=== PATIENT | male | born 1980 | race Caucasian/White ===

== ENCOUNTER 2019-03-11 12:51 | Emergency (ER) | payer BC, SELFPAY ==
[2019-03-11 12:54] VITALS: BP 158/93; PULSE 117; RESP 13; TEMP 36.4; O2SAT 95; BMI 36.6
--- NOTE | 2019-03-11 13:34 | RAD_ITS ---
STUDY: X-RAY CHEST REASON FOR EXAM: Male, 39 years old. RAPID HEART RATE/SOB TECHNIQUE: Single AP portable view of the chest. COMPARISON: 03/01/2015. FINDINGS: The lungs are clear and expanded. There is no demonstrated pleural abnormality. Normal size heart. Normal mediastinum and stephanie. Normal visualized pulmonary arteries. Normal visualized aortic arch and descending thoracic aorta. Normal visualized thoracic spine. Normal visualized ribs, clavicles, and shoulders. There is no demonstrated abnormality of the visualized soft tissue structures of the upper abdomen. RAD/Chest 1 View (Portable) IMPRESSION: Normal x-ray examination of the chest. Electronically Signed: Preston Tenorio MD at 13:57 EDT , Service support ,
--- NOTE | 2019-03-11 13:34 | EKG12_ITS ---
Test Reason : PALPITATIONS Blood Pressure : / mmHG Vent. Rate : 120 BPM Atrial Rate : 120 BPM P-R Int : 156 ms QRS Dur : 088 ms QT Int : 312 ms P-R-T Axes : 042 129 018 degrees QTc Int : 440 ms Sinus tachycardia Left posterior fascicular block Possible Inferior infarct (cited on or before 01-MAR-2015), age undetermined Poor R-Wave Progression Abnormal ECG Confirmed by ADALGISA CARDENAS, MONCHO ([id number]), editor continuity and script KRISTAL SNIDER ([id number]) on 03/13/2019 11:57:17 AM Referred By: MEHNAZ Confirmed By:MONCHO DIANA MD
[2019-03-11] MEDS: 0.9% Normal Saline 1,000 ML 999 ML IV (13:45)
--- NOTE | 2019-03-11 13:56 | ED.DCSUM_ITS ---
- ER Visit Summary Date of Service: 03/11/19 Chief Complaint: Fast heart rate History of Present Illness: The patient is a 39 M who presents the emergency department with palpitations. Patient states that he was up all night packing boxes for move. He drank slightly less than the fifth of vodka and orange juice. He went to bed around 0700 hours. He does not normally stay up all night. He slept until approximately 1230 hrs. when he woke to urinate. He has had a sudden onset of fast heart rate. He states his heart was beating too fast to count and felt like his go to come out of his chest. He had to sit down in the bathroom. EMS was called and he tells me that as they walked into the house his symptoms suddenly resolved. He has had intermittent episodes like this in the past lasting only a few seconds. Physical Examination: Afebrile vital signs are stable noted heart rate of 117 Gen: Well-nourished well-developed Head: Normocephalic atraumatic Eyes: Perrl EOMI ENT: TMs clear no rhinorrhea moist mucous membranes Neck: Supple no lymphadenopathy no JVD nontender CVS: Regular rate tachycardic rhythm no murmurs normal S1-S2 Respiratory: No distress clear to auscultation bilaterally chest nontender Abdomen: Soft nontender nondistended normal bowel sounds no masses Back: Nontender Extremity: Nontender no edema Skin: Normal color no rash Neuro: alert orientated ?3 CN II-XII intact normal strength sensation reflexes gait cerebellar Psych: Normal affect normal mood Test Results: EKG demonstrates a sinus tachycardia rate of 120. There is no ectopy. Noted left posterior fascicular block. CBC and electrolytes are normal Emergency Department Course and Treatment: Patient was observed on the monitor. Patient sinus tachycardia. He states that he feels very anxious. At this point I have have not seen any pathologic rhythms. Patient to follow-up with primary care. He should avoid alcohol and try to quit smoking. Avoid caffeine. Impression: 1. Palpitations This note was generated with [employer] dictation software. It may contain incorrect words, spelling, and punctuation that were not noted in review of the chart prior to signing ED Disposition - Plan for ED Patient: Disposition: Home or Assisted Living Instructions: ED Palpitations, ED Tachycardia Pat PSVT Referrals: Herbie Hook DO [Primary Care Provider] - (call to arrange follow up)
[2019-03-11 14:05] LABS: Absolute Lymphocyte Count 1.73 X10^3/ul (0.83-4.51); Absolute Neutrophil Count 5.3 X10^3/uL (2.0-7.7); Basophil# 0.02 X10^3/uL; Basophil% 0.3 % (0-1); Eosinophil# 0.06 X10^3/uL; Eosinophils% 0.8 % (0-5); Hematocrit 46.7 % (40-54); Hemoglobin 15.8 g/dl (13.0-16.5); Lymphocyte # 1.73 X10^3/ul (4.0); Lymphocyte % 22.7 % (19-41); Mean Corp Hgb Conc 33.8 g/gl (32-36); Mean Corpuscular Volume 88.8 fL (80-94); Mean Platelet Vol. 10.1 fl (6.2-12.0); Monocyte# 0.47 X10^3/uL; Monocyte% 6.2 % (0-10); Neutrophil # 5.31 X10^3/uL (2.7-7.7); Neutrophil % 69.6 % (47-70); Platelet Count 299 K/mm3 (150-450); RBC Distribution Width CV 13.8 % (11.6-14.6); RBC Distribution Width SD 44.9 fl (35.1-43.9); Red Blood Count 5.26 M/mm3 (4.6-6.2); White Blood Count 7.6 K/mm3 (4.4-11.0)
[2019-03-11 14:08] LABS: POSITIVE COUNT NO; POSITIVE DIFFERENTIAL NO; POSITIVE MORPHOLOGY NO
[2019-03-11 14:17] LABS: Anion Gap 3 (5-15); BUN 11 mg/dL (7-18); BUN/Creat Ratio 12.2 RATIO (10-20); Calcium,Total 8.1 mg/dL (8.5-10.1); Chloride 111 mmol/L (98-107); EST Glomerular Filtration Rate 100 mL/min (>60); Est Glom Filt Rate - Afr Amer 121 mL/min (>60); Estimated Creatinine Clearance 133.01 ml/min; Glucose 104 mg/dL (74-106); Magnesium 1.9 mg/dL (1.6-2.6); Potassium 3.9 mmol/L (3.5-5.1); Sodium Level 141 mmol/L (136-145)
[2019-03-11 14:23] LABS: Hemoglobin A1c 5.5 % (4.2-6.3)
[2019-03-11 15:09] VITALS: BP 133/85; PULSE 108; RESP 16; O2SAT 96
== END 2019-03-11 15:11 | disposition home or self-care (01) ==
PROVIDERS: Emergency Provider Emergency Medicine; Family Provider Preventive Medicine Occupational Medicine; PCP Preventive Medicine Occupational Medicine
DX: R00.2 Palpitations (principal); F17.200 Nicotine dependence, unspecified, uncomplicated; Z72.89 Other problems related to lifestyle
CPT/HCPCS: 71045; 80048; 83036; 83735; 85025; 93005; 96360; 99285; J7030; A4216

== ENCOUNTER → 2023-02-10 | Outpatient (CLI) | payer OTHER, SELFPAY ==
[2023-02-10 12:35] LABS: Absolute Lymphocyte Count 1.52 X10^3/uL (0.83-4.51); Absolute Neutrophil Count 4.1 X10^3/uL (2.0-7.7); Basophil# 0.04 X10^3/uL; Basophil% 0.7 % (0-1); Eosinophil# 0.11 X10^3/uL; Eosinophils% 1.8 % (0-5); Hematocrit 49.6 % (40-54); Hemoglobin 16.2 g/dL (13.0-16.5); Lymphocyte # 1.52 X10^3/ul (0.83-4.51); Lymphocyte % 24.9 % (19-41); Mean Corp Hgb Conc 32.7 g/dL (32-36); Mean Corpuscular Hgb 29.3 pg (27.0-32.0); Mean Corpuscular Volume 89.7 fL (80-94); Mean Platelet Vol. 10.7 fl (6.2-12.0); Monocyte# 0.36 X10^3/uL; Monocyte% 5.9 % (0-10); NRBC Flagged by Analyzer 0 % (0-5); Neutrophil # 4.05 X10^3/uL (2.7-7.7); Neutrophil % 66.4 % (47-70); Platelet Count 313 K/mm3 (150-450); RBC Distribution Width CV 13.1 % (11.6-14.6); RBC Distribution Width SD 43.3 fl (35.1-43.9); Red Blood Count 5.53 M/mm3 (4.6-6.2); White Blood Count 6.1 K/mm3 (4.4-11.0)
[2023-02-10 13:24] LABS: Hemoglobin A1c 5.3 % (3.8-5.6)
[2023-02-10 13:33] LABS: AST(SGOT) 19 U/L (15-37); Alanine Aminotransfer ALT/SGPT 28 U/L (16-61); Albumin, Serum 3.8 g/dL (3.2-5.0); Alkaline Phosphatase 88 U/L (45-117); Anion Gap 6 (5-15); BUN 15 mg/dL (7-18); BUN/Creat Ratio 18.1 RATIO (10-20); Calcium,Total 9.2 mg/dL (8.5-10.1); Chloride 108 mmol/L (98-107); Cholesterol 229 mg/dL (200); Creatinine, Serum 0.83 mg/dL (0.70-1.30); EST Glomerular Filtration Rate 108 mL/min (>60); Est Glom Filt Rate - Afr Amer 131 mL/min (>60); Globulin 3.8 g/dL (2.2-4.2); Glucose 100 mg/dL (74-106); High Density Lipoprotein 38 mg/dL; Potassium 3.9 mmol/L (3.5-5.1); Protein, Total 7.6 g/dL (6.4-8.2); Sodium Level 139 mmol/L (136-145); Thyroid Stim Hormone (TSH) 1.09 uIU/mL (0.358-3.74); Triglycerides 223 mg/dL; Very Low Density Lipoprotein 45 mg/dL (5-40)
== END | disposition home or self-care (01) ==
LOC: MFPLAB 11:11
PROVIDERS: PCP Family Medicine; Referring Provider Family Medicine; Visit Provider Family Medicine
DX: R00.2 Palpitations (principal)
CPT/HCPCS: 36415; 80053; 80061; 83036; 84443; 85025

== ENCOUNTER 2023-02-25 19:37 | Emergency (ER) | payer OTHER, SELFPAY ==
[2023-02-25 19:38] VITALS: BP 143/90; PULSE 91; RESP 18; TEMP 36.7; O2SAT 99; BMI 29.5
[2023-02-25 20:30] LABS: Absolute Lymphocyte Count 2.08 X10^3/uL (0.83-4.51); Absolute Neutrophil Count 5.2 X10^3/uL (2.0-7.7); Basophil# 0.04 X10^3/uL; Basophil% 0.5 % (0-1); Eosinophil# 0.11 X10^3/uL; Eosinophils% 1.4 % (0-5); Hematocrit 45.6 % (40-54); Hemoglobin 15.1 g/dL (13.0-16.5); Lymphocyte # 2.08 X10^3/ul (0.83-4.51); Lymphocyte % 25.9 % (19-41); Mean Corp Hgb Conc 33.1 g/dL (32-36); Mean Corpuscular Hgb 29.3 pg (27.0-32.0); Mean Corpuscular Volume 88.4 fL (80-94); Mean Platelet Vol. 10.1 fl (6.2-12.0); Monocyte# 0.56 X10^3/uL; NRBC Flagged by Analyzer 0 % (0-5); Neutrophil # 5.23 X10^3/uL (2.7-7.7); Neutrophil % 65.1 % (47-70); Platelet Count 313 K/mm3 (150-450); RBC Distribution Width CV 13.1 % (11.6-14.6); RBC Distribution Width SD 42.9 fl (35.1-43.9); Red Blood Count 5.16 M/mm3 (4.6-6.2)
[2023-02-25 21:03] LABS: ALB/GLOB Ratio 1.1 RATIO (0.9-2.4); AST(SGOT) 18 U/L (15-37); Alanine Aminotransfer ALT/SGPT 26 U/L (16-61); Albumin, Serum 3.7 g/dL (3.2-5.0); Alkaline Phosphatase 79 U/L (45-117); Anion Gap 4 (5-15); BUN 18 mg/dL (7-18); BUN/Creat Ratio 17.3 RATIO (10-20); Calcium,Total 8.9 mg/dL (8.5-10.1); Chloride 111 mmol/L (98-107); Creatinine, Serum 1.04 mg/dL (0.70-1.30); EST Glomerular Filtration Rate 83 mL/min (>60); Est Glom Filt Rate - Afr Amer 101 mL/min (>60); Estimated Creatinine Clearance 107.58 ml/min; Globulin 3.4 g/dL (2.2-4.2); Glucose 116 mg/dL (74-106); Potassium 3.6 mmol/L (3.5-5.1); Protein, Total 7.1 g/dL (6.4-8.2); Sodium Level 142 mmol/L (136-145); Thyroid Stim Hormone (TSH) 1.43 uIU/mL (0.358-3.74)
--- NOTE | 2023-02-25 22:05 | EDS_ITS ---
HPI History of Present Illness Chief Complaint: General Illness [facility] Medical History (Updated 02/25/23 @ 22:[address] Alexsander Milton MD) Alcohol abuse Cataracts, both eyes Home Medications buspirone 5 mg tablet 5 mg PO DAILY 10/03/19 [History Last Taken Unknown] Allergy/AdvReac Type Severity Reaction Status Date / Time No Known Allergies Allergy Verified 02/25/23 19:40 Social History (Updated 10/03/19 @ 11:[address] Mane Canseco MD) Smoking Status: Former smoker alcohol intake: former details: liquor excessive every other day substance use type: does not use what type of physical activity do you participate in: walking frequency: daily EXAM Physical Exam Const Vital Signs: 02/25/23 19:38 02/25/23 19:53 Temperature 98.0 F Temperature Source Temporal Pulse Rate 91 Respiratory Rate 18 Respiratory Effort Normal Non-Labored Respiratory Pattern Normal Blood Pressure 143/90 H Blood Pressure Mean 107 Pulse Ox 99 Oxygen Delivery Method Room Air MDM MDM MDM Narrative Medical decision making narrative: Patient CBC shows no acute abnormalities. Electrolytes are overall good. Minimal elevation of chloride which is nonspecific. Glucose is mildly elevated at 116. BUN/creatinine calcium are normal. Liver function test are normal. TS H is normal. Patient has lots of symptoms. He evidently has been dealing with these for a while although they have worsened. He has never been able to get the results to explain his symptoms at his family doctor. They have done work-up and have not found causes. I think some of his symptoms may be from GERD because he does get a lot of GI upset nausea after eating. But he is not getting real pain. No biliary area tenderness. I recommend he try taking Prilosec or Nexium for couple weeks to see if his symptoms get better. This may not help him but it may give some benefit. He will follow-up with his primary physician. I explained that there is quite a bit of other testing that can be done that is not available in the emergency department. Lab Data Attestation: I reviewed the patient's lab results. Labs: Laboratory Results - last 24 hr 02/25/23 02/25/23 20:20 20:20 WBC 8.0 RBC 5.16 Hgb 15.1 Hct 45.6 MCV 88.4 MCH 29.3 MCHC 33.1 RDW Std Deviation 42.9 RDW Coeff of Daylin 13.1 Plt Count 313 MPV 10.1 Immature Gran % (Auto) 0.100 Neut % (Auto) 65.1 Lymph % (Auto) 25.9 Lewis % (Auto) 7.0 Eos % (Auto) 1.4 Baso % (Auto) 0.5 Absolute Neuts (auto) 5.2 Absolute Lymphs (auto) 2.08 Nucleated RBC % 0 Sodium 142 Potassium 3.6 Chloride 111 H Carbon Dioxide 27.0 Anion Gap 4 L BUN 18 Creatinine 1.04 Estim Creat Clear Calc 107.58 Est GFR (MDRD) Af Amer 101 Est GFR (MDRD) Non-Af 83 BUN/Creatinine Ratio 17.3 Glucose 116 H Calcium 8.9 Total Bilirubin 0.30 AST 18 ALT 26 Alkaline Phosphatase 79 Total Protein 7.1 Albumin 3.7 Globulin 3.4 Albumin/Globulin Ratio 1.1 TSH 1.43 Discharge Plan Triage Chief Complaint: General Illness ED Provider: Alexsander Milton Dx/Rx/DC Orders Clinical Impression: Gastroesophageal reflux disease, Tiredness Instructions: ED GERD (Adult) Prescriptions: No Action buspirone 5 mg tablet 5 mg PO DAILY Primary Care Provider: Elise Benavides Referrals: Elise Benavides, DO [Primary Care Provider] - As soon as possible Disposition Disposition: Home, Self Care
[2023-02-25 22:18] VITALS: BP 136/91; PULSE 71; RESP 12; O2SAT 97
== END 2023-02-25 22:18 | disposition home or self-care (01) ==
PROVIDERS: Emergency Provider Emergency Medicine; PCP Family Medicine; Visit Provider Emergency Medicine
DX: K21.9 Gastro-esophageal reflux disease without esophagitis (principal); R53.83 Other fatigue; Z87.891 Personal history of nicotine dependence
CPT/HCPCS: 80053; 84443; 85025; 99283; A4216

== ENCOUNTER → 2023-03-17 | Outpatient (CLI) | payer OTHER, SELFPAY ==
--- NOTE | 2023-03-17 11:02 | ECHOD_ITS ---
Reason For Study: ABN EKG Procedure This was a 2D Doppler, Color Flow transthoracic echocardiogram. Exam performed in department. Left Ventricle Normal left ventricle. The left ventricular ejection fraction is 60 %. No evidence for diastolic dysfunction. Right Ventricle Normal right ventricle. Atria The left and right atria are normal. Mitral Valve The mitral valve is structurally normal. No prolapse or stenosis seen. Tricuspid Valve Normal tricuspid valve. Aortic Valve Normal aortic valve. Pulmonic Valve The pulmonic valve is not well visualized. Great Vessels Normal sized aortic root. Pericardium/Pleural No pericardial effusion. MMode/2D Measurements & Calculations LVIDd: 4.8 cm IVSd: 1.0 cm LAV(MOD-bp): 30.2 ml LVIDs: 3.1 cm LVPWd: 0.79 cm LAV(MOD-bp) Indexed: 13.2 ml/m2 FS: 34.9 % LAV(MOD-sp2): 30.0 ml LAV(MOD-sp4): 30.1 ml SV(MOD-sp4): 31.7 ml SV(sp4-el): 35.0 ml LVAd ap4: 25.2 cm2 LVLd ap4: 8.3 cm EDV(MOD-sp4): 60.8 ml EDV(sp4-el): 64.4 ml LVAs ap4: 15.3 cm2 LVLs ap4: 6.7 cm ESV(MOD-sp4): 29.1 ml ESV(sp4-el): 29.4 ml EF(MOD-sp4): 52.2 % EF(sp4-el): 54.4 % LA A4 area: 13.7 cm2 LA dimension(2D): 3.5 cm RA A4 area: 10.8 cm2 Time Measurements MV dec time: 0.27 sec Doppler Measurements & Calculations MV E max dany: 61.1 cm/sec Lat Peak E' Dany: 16.8 cm/sec Med Peak E' Dany: 10.5 cm/sec MV A max dany: 56.3 cm/sec E/E' lat: 3.6 E/E' med: 5.8 MV E/A: 1.1 MV V2 max: 90.2 cm/sec MV dec slope: 258.1 cm/sec2 Ao V2 max: 128.1 cm/sec MV max P.3 mmHg Ao max P.6 mmHg MV V2 mean: 60.7 cm/sec Ao V2 mean: 89.0 cm/sec MV mean P.6 mmHg Ao mean P.6 mmHg MV V2 VTI: 25.0 cm Ao V2 VTI: 23.9 cm AV (velocity ratio): 0.94 LV V1 max: 106.0 cm/sec PA V2 max: 123.7 cm/sec LV V1 max P.5 mmHg PA V2 mean: 80.9 cm/sec LV V1 mean P.5 mmHg LV V1 mean: 73.6 cm/sec LV V1 VTI: 22.4 cm ECHO/Echo Complete Interpretation Summary The left ventricular ejection fraction is 60 %. No evidence for diastolic dysfunction. Ordering Physician: Elise Benavides Referring Physician: Elise Benavides Performed By: Sravanthi Smith RCS
== END | disposition home or self-care (01) ==
LOC: CVS 11:01
PROVIDERS: PCP Family Medicine; Referring Provider Family Medicine; Visit Provider Family Medicine
DX: R94.31 Abnormal electrocardiogram [ECG] [EKG] (principal)
CPT/HCPCS: 93306

== ENCOUNTER → 2023-10-22 | Outpatient (CLI) | payer OTHER, SELFPAY ==
--- NOTE | 2023-10-22 14:15 | RAD_ITS ---
INDICATION: chronic left foot pain EXAMINATION/TECHNIQUE: X-RAY - LEFT XR Foot Min 3 Views 3 VIEWS COMPARISON: No relevant prior comparison study available FINDINGS: SOFT TISSUES: No soft tissue swelling or gas. No radiopaque foreign body. BONES/JOINTS: No acute fracture or subluxation.. Normal alignment. Preservation of the joint space.. No sclerotic or destructive changes observed. Mild hypertrophic spurring of the plantar aponeurosis and Achilles insertion to the calcaneus. RAD/Foot min 3 Views IMPRESSION: No fracture or malalignment. Small heel spurs. Electronically Signed: Bg Stockton MD at 17:36 EST ,
== END | disposition home or self-care (01) ==
LOC: MTRAD 14:16
PROVIDERS: PCP Family Medicine; Referring Provider Family Medicine; Visit Provider Family Medicine
DX: M79.672 Pain in left foot (principal); G89.29 Other chronic pain
CPT/HCPCS: 73630

== ENCOUNTER 2024-02-22 14:33 | Emergency (ER) | payer OTHER, SELFPAY ==
[2024-02-22 14:34] VITALS: BP 131/88; PULSE 90; RESP 16; TEMP 36.2; O2SAT 97; BMI 31.5
[2024-02-22 15:29] VITALS: BP 132/68; PULSE 69; RESP 16; TEMP 37.2; O2SAT 99
--- NOTE | 2024-02-22 15:29 | ED.VIS.GI ---
HPI HPI - GI History of Present Illness Chief Complaint: Lower Extremity Injury Detail of Chief Complaint: Left groin pain. Informant: patient and spouse/S.O. Abdominal Pain/Flank Pain Onset: Month(s) Context: Gradual Onset Timing: Intermittent Quality: Aching Location: - (Left groin.) Current Severity: Mild Maximum Severity: Moderate Nausea/Vomiting/Emesis GI Symptom: Negative for Nausea or Vomiting Diarrhea/Melena/Hematochezia GI Symptom: Negative for Diarrhea, Melena or Hematochezia Associated Symptoms Associated Symptoms: Negative for Dysuria, Frequency, Hematuria or Urgency Narrative Narrative: 44-year-old healthy male no prior abdominal surgery. Has had intermittent groin pain for months. Intermittently he feels a fullness in his left groin area. Denies any fall injury or trauma. No abdominal pain. No fever or chills. No nausea, vomiting or diarrhea. No dysuria. Prior similar symptoms: Yes Recent Illness/Hospitalization: No PFSH PFSH Medical History Alcohol abuse Cataracts, both eyes Hernia Home Medications buspirone 5 mg tablet 5 mg PO DAILY 10/03/19 [History Last Taken Unknown] Allergy/AdvReac Type Severity Reaction Status Date / Time No Known Allergies Allergy Verified 02/22/24 14:37 Social History Smoking Status: Former smoker alcohol intake: former details: liquor excessive every other day substance use type: does not use what type of physical activity do you participate in: walking frequency: daily ROS ROS ED ROS Narrative Left groin pain. No recent illness. Review of Systems ROS Unobtainable: Denies due to encephalopathy Constitutional Constitutional ED: Denies chills or fever(s) ENT ENT ED: Denies ear pain Cardiovascular Cardiovascular: Denies chest pain or palpitations Respiratory/Chest Respiratory/Chest: Denies cough or dyspnea Gastrointestinal Gastrointestinal: Denies abdominal pain, constipation, diarrhea, melena, nausea or vomiting Genitourinary Genitourinary ED: Denies dysuria or hematuria Musculoskeletal Musculoskeletal: Denies arthralgias or back pain Integumentary Denies abscess, Abrasions or rash Neurologic Neurologic: Denies headache(s) Psychiatric Psychiatric: Denies anxiety, depression or suicidal thoughts Endocrine Endocrinology: Denies polydipsia or polyuria Hematologic/Lymphatic Hematologic/Lymphatic: Denies easy bleeding, easy bruising or lymphadenopathy Allergic/Immunologic Allergic/Immunologic ED: Denies mouth swelling, tongue swelling or urticaria EXAM Physical Exam Narrative Exam Narrative: 44-year-old male no acute distress sitting upright in bed. Vital signs stable afebrile. HEENT exam unremarkable. Lungs clear to auscultation. Heart regular rhythm no murmur. Abdomen soft, nondistended normal bowel sounds no peritoneal signs. Left groin there is a fullness in his proximal scrotum. But there is no scrotal tenderness or pain. No redness or swelling. No testicular tenderness or swelling. His right groin is unremarkable. His left inguinal canal he can feel a fullness. Currently there is no incarcerated or strangulated hernia. But I do think this is a inguinal hernia. Moving all 4 extremities. Nontender no edema. Neurologically is awake and alert. Const Vital Signs: 02/22/24 14:34 Temperature 97.1 F L Temperature Source Temporal Pulse Rate 90 Respiratory Rate 16 Blood Pressure 131/88 H Blood Pressure Mean 102 Pulse Ox 97 Oxygen Delivery Method Room Air Positive well nourished and well developed; Negative for cachectic, contractures or unkempt General Appearance ED: well developed and NAD; Negative for unkempt, cachectic, contractures or pallor Nutritional Appearance: Negative for cachectic HEENT Reports moist mucous membranes; Denies dry mucous membranes normocephalic and atraumatic; Negative for trauma or tenderness Mouth ED: No dry mucous membranes Mouth: No dry mucous membranes Eyes PERRL and EOMs intact bilaterally General Eye ED: Negative for pale conjunctiva, scleral icterus or other Neck no lymphadenopathy, supple and no JVD General: Negative for tenderness Carotids: Negative for other Resp normal respiratory effort and clear to auscultation bilaterally Effort and Inspection: Negative for respiratory distress Auscultation: Negative for rales, rhonchi or wheezes Cardio regular rate, regular rhythm, S1 normal heart sound, S2 normal heart sound and no murmurs Rate: Negative for bradycardia or tachycardic Rhythm: Negative for abnormal rhythm GI non-tender, non-distended and no masses GI Narrative: Left inguinal hernia. No significant tenderness. Inspection: Negative for abdominal distention Auscultation: normoactive bowel sounds Palpation: soft and hernia; Negative for tender or rebound tenderness present Back/Spine no CVA tenderness General Back: Negative for CVA tenderness Cervical Spine: Negative for cervical spine tenderness Thoracic Spine / Upper Back: Negative for thoracic spinal tenderness Lumbar Spine / Lower Back: Negative for lumbar spinal tenderness Coccyx: Negative for other Neuro CN's II-XII intact bilaterally and moves all extremities Sensorium / Orientation: alert, oriented to person, oriented to place and oriented to time; Negative for orientation impaired, confused, lethargic or stuporous Motor Exam: strength 5/5 throughout Psych mental status grossly normal and thought process normal Appearance: Negative for unkempt Attitude: No agitated Mood & Affect: Negative for depressed, anxious or tearful Skin General Skin Exam: Negative for jaundice or pallor Lesions: no lesions Rashes: no rashes Trauma: Negative for abrasion Nails: Negative for discolored MDM MDM MDM Narrative Medical decision making narrative: 44-year-old male has a left inguinal hernia. Currently is not incarcerated strangulated he has no signs of abdominal pain, tenderness or obstruction. He will be referred to general surgery on-call who is Dr. David Lopez to ask for outpatient follow-up. Patient was instructed if he develops severe pain or distended abdomen with increasing abdominal pain needs to return for evaluation but at this time is no signs of any of that. History & Record Review Discussion w/independent historian: Patient and Family Discharge Plan Triage Chief Complaint: Lower Extremity Injury ED Provider: Zachary Orantes Dx/Rx/DC Orders Clinical Impression: Inguinal hernia Instructions: ED Hernia (Adult) Prescriptions: No Action buspirone 5 mg tablet 5 mg PO DAILY Primary Care Provider: Elise Benavides Referrals: David Santiago MD [Med Staff - Active Staff] - As soon as possible Elise Benavides, DO [Primary Care Provider] - Activity Restrictions/Additional Instructions: Tylenol and or Motrin for pain. You have a left groin hernia. Follow-up with general surgery at evaluated for possible hernia repair surgery. Return if you start having severe pain for a distended abdomen we could be developing a bowel obstruction. Disposition Disposition: Home, Self Care
== END 2024-02-22 15:47 | disposition home or self-care (01) ==
LOC: ED 15:43
PROVIDERS: Emergency Provider Emergency Medicine; PCP Family Medicine; Visit Provider Emergency Medicine
DX: K40.90 Unilateral inguinal hernia, without obstruction or gangrene, not specified as recurrent (principal); Z87.891 Personal history of nicotine dependence
CPT/HCPCS: 99282

== ENCOUNTER 2025-07-31 14:06 | Emergency (ER) | payer OTHER, SELFPAY ==
[2025-07-31 14:07] VITALS: BP 141/110; PULSE 88; RESP 18; TEMP 36.4; O2SAT 99; BMI 30.7
--- NOTE | 2025-07-31 14:43 | EDS_ITS ---
HPI History of Present Illness Chief Complaint: Fatigue Detail of Chief Complaint: Fatigue, vague headache, increased bowel movement Informant: patient and spouse/S.O. Onset/Context/Timing Onset: Month(s) (Approximately 1 month) Context: - (Started 1 month ago.) Timing: Continuous (Some things are constant some things or not. HPI narrative for detail) and Waxes and wanes Quality: HPI narrative for detail Location: HPI narrative for detail Worsened by: Headache is precipitated after eating breakfast Relieved by: Not applicable Associated Symptoms Associated Symptoms: Generalized fatigue, at times forgetful and migratory burning pain Narrative Narrative: Patient is a 45-year-old male. He has history of depression. Patient denies fever or chills. Patient does complain of a vague headache cannot localize it. He denies double vision or blurred vision. He denies ringing in his ears, decreased hearing or pain in his ears. He does have mild congestion and needs to clear his throat according to his . There is been no change in his voice or speech. He denies respiratory or cardiac symptoms. He does report 3-4 bowel movements a day for the past several weeks. This is not normal. He has no history of IBS or IBD. There is no family history of IBD. He has not noticed any blood or mucus. He does admit that he has not really looked either. He states he has difficulty with urination. He denies dysuria or frequency or blood in his urine. He also complains of this migratory burning sensation that may last up to a week. Nothing precipitates, exacerbates or alleviates the symptoms. He denies heat or cold intolerance. He denies weight gain. He states he may have had a pound or 2 weight loss since his appetite has been decreased has had increased bowel movements. He has not noted a rash. Prior similar symptoms: No Recent Illness/Hospitalization: No PFSH PFSH Medical History Hernia Cataracts, both eyes Alcohol abuse Home Medications ?Medication ?Instructions ?Recorded ?Last Taken ?Type NK 07/31/25 Unknown History Allergy/AdvReac Type Severity Reaction Status Date / Time Milk Containing Products Allergy Other Verified 07/31/25 14:07 (Dairy) Family History no significant family his Social History household members: spouse Smoking Status: Former smoker alcohol intake: former details: liquor excessive every other day substance use type: does not use what type of physical activity do you participate in: walking frequency: daily ROS ROS ED Constitutional Constitutional ED: Reports weight loss; Denies chills, fever(s), subjective or sweats Eyes Eyes: Denies blurry vision, change in vision or diplopia ENT ENT ED: Denies ear pain, rhinorrhea or sore throat Cardiovascular Cardiovascular: Denies chest pain or palpitations Respiratory/Chest Respiratory/Chest: Denies cough, dyspnea or dyspnea on exertion Gastrointestinal Gastrointestinal: Reports abdominal pain and other Details: Increased bowel movements. Bowel movements is softer. ; Denies constipation, diarrhea, melena, nausea or vomiting Genitourinary Genitourinary ED: Denies dysuria, hematuria or urinary frequency Musculoskeletal Musculoskeletal: Denies arthralgias, back pain or myalgias Integumentary Denies abscess, Abrasions or rash Neurologic Neurologic: Reports headache(s); Denies paresthesias or weakness Psychiatric Psychiatric: Denies anxiety Endocrine Endocrinology: Denies cold intolerance, heat intolerance, polydipsia or polyuria Hematologic/Lymphatic Hematologic/Lymphatic: Reports systems reviewed and no addt'l complaints, except as documented EXAM Physical Exam Const Vital Signs: 07/31/25 14:07 07/31/25 14:36 Temperature 97.5 F L Temperature Source Temporal Pulse Rate 88 Respiratory Rate 18 Respiratory Effort Normal Non-Labored Blood Pressure 141/110 H Blood Pressure Mean 120 Pulse Ox 99 Oxygen Delivery Method Room Air Positive well nourished and well developed Constitutional Narrative: Patient appears in no distress. General Appearance ED: well developed and NAD; Negative for cyanotic, diaphoretic or pallor HEENT Reports moist mucous membranes HEENT Narrative: Head is atraumatic and normocephalic. Ears normal. TMs are normal. Nares patent no discharge. No frontal maxillary sinus tenderness. Posterior pharynx out erythema or exudate. Uvula is midline. No deviation of the tongue or protrusion. Eyes PERRL and EOMs intact bilaterally Eyes Narrative: There is no nystagmus. General Eye ED: Negative for pale conjunctiva or scleral icterus Neck no lymphadenopathy, supple and no JVD Chest Wall inspection of chest normal Resp normal respiratory effort and clear to auscultation bilaterally Cardio regular rate, regular rhythm, S1 normal heart sound, S2 normal heart sound and no murmurs GI normal to inspection, nondistended, normoactive bowel sounds, non-tender, non- distended and no masses; Negative for hepatosplenomegaly Auscultation: normoactive bowel sounds Palpation: soft Extremity normal to inspection General Extremety ED: Negative for edema or tenderness General Extremity: Negative for edema Neuro oriented x3, CN's II-XII intact bilaterally and no sensory deficits noted Neuro Narrative: There is no clonus or Babinski sign noted right or left. Brachioradialis, bicep, tricep, patella and ankle reflex are 2+ and symmetric. There is no dysmetria. Sensorium / Orientation: alert Motor Exam: strength 5/5 throughout Psych mental status grossly normal Skin no rashes or lesions noted, no wounds and skin turgor normal General Skin Exam: elasticity normal; Negative for jaundice or pallor MDM MDM MDM Narrative Medical decision making narrative: Differential diagnosis would include connective tissue disorder, IBD, hypothyroidism, affective disorder and malignancy. Screening blood work was obtained including ESR to. Will review prior records if any. History & Record Review Additional record(s) reviewed:: Prior outpatient record (Dr. Mane Canseco for nonspecific paroxysmal spell.) and Prior ED visit (February 2024 seen for inguinal hernia. GI symptoms January 2023.) Lab Data Attestation: I reviewed the patient's lab results. Lab results narrative: ESR is normal with a month of symptoms. Urine macro is remarkable for elevated spec gravity of 1.025 and proteinuria. Otherwise negative. Comprehensive metabolic panel reveals blood glucose of 141. CO2 anion gap are normal. ESR is normal, 10. Labs: Laboratory Results - last 24 hr 07/31/25 07/31/25 14:24 14:45 WBC 8.1 RBC 5.03 Hgb 15.0 Hct 43.4 MCV 86.3 MCH 29.8 MCHC 34.6 RDW Std Deviation 41.6 RDW Coeff of Daylin 13.3 Plt Count 285 MPV 10.5 Immature Gran % (Auto) 0.200 Neut % (Auto) 69.1 Lymph % (Auto) 23.0 Barber % (Auto) 5.7 Eos % (Auto) 1.6 Baso % (Auto) 0.4 Absolute Neuts (auto) 5.6 Absolute Lymphs (auto) 1.86 Nucleated RBC % 0 ESR 10 Sodium 138 Potassium 4.0 Chloride 104 Carbon Dioxide 21.5 Anion Gap 12 BUN 14 Creatinine 0.86 Estim Creat Clear Calc 143.92 Est GFR (MDRD) Non-Af 110 BUN/Creatinine Ratio 16.2 Glucose 141 H Calcium 9.3 Total Bilirubin 0.20 AST 25 ALT 21 Alkaline Phosphatase 70 Total Protein 7.2 Albumin 4.2 Globulin 3.0 Albumin/Globulin Ratio 1.4 TSH 1.660 Urine Color Yellow Urine Clarity Clear Urine pH 6.0 Ur Specific Gibson 1.025 Urine Protein 15 H Urine Glucose (UA) Normal Urine Ketones Negative Urine Occult Blood Negative Urine Nitrite Negative Urine Bilirubin Negative Urine Urobilinogen Normal Ur Leukocyte Esterase Negative Treatment and Re-Evaluation :: Workup is negative. Since is been going on for a month and laboratory studies are unremarkable and he is hemodynamically stable we will have him follow-up with his doctor for outpatient workup. He will need to have his blood sugar checked as well as blood pressure since he does not have history of diabetes or hypertension. He does not have a physician. Apparently there is no physician in the area that takes his insurance. Recommended calling the insurance company to get a physician nearby for follow-up. She also inform me that it is not uncommon when he comes in that nothing can be found. Discharge Plan Triage Chief Complaint: Fatigue ED Provider: Curtis Bearden Dx/Rx/DC Orders Clinical Impression: Fatigue, Nondiabetic hyperglycemia, Elevated blood-pressure reading without diagnosis of hypertension Instructions: ED Hypertension, To Be Confirmed, ED Weakness Uncertain Cause, ED Hyperglycemia New Poss Diabetes Prescriptions: No Action NK Stand Alone Forms: ED Work / School Excuse Primary Care Provider: Care Physician,No Primary Referrals: Care Physician,No Primary [Primary Care Provider] - Print Language: Colombian Disposition Disposition: Home, Self Care
[2025-07-31 14:59] LABS: Color, Urine Yellow (Yellow); Glucose, Dipstick Normal (Normal); Ketone-Dipstick Negative (Negative); Leukocyte Esterase-Dipstick Negative /ul (Negative); Nitrite-Dipstick Negative (Negative); Occult Blood-Urine Negative /ul (Negative); Protein-Dipstick 15 mg/dl (Negative); Specific Gravity, Urine 1.025 (1.002-1.030); Urine Bilirubin Dipstick Negative (Negative)
[2025-07-31 15:11] LABS: Hematocrit 43.4 % (40-54); Hemoglobin 15.0 g/dL (13.0-16.5); Immature Granulocytes Count 0.020 X10^3/uL (0.0-0.0); Mean Corp Hgb Conc 34.6 g/dL (32-36); Mean Corpuscular Volume 86.3 fL (80-94); Mean Platelet Vol. 10.5 fl (6.2-12.0); NRBC Flagged by Analyzer 0 % (0-5); Platelet Count 285 K/mm3 (150-450); RBC Distribution Width CV 13.3 % (11.6-14.6); RBC Distribution Width SD 41.6 fl (35.1-43.9); Red Blood Count 5.03 M/mm3 (4.6-6.2); White Blood Count 8.1 K/mm3 (4.4-11.0)
[2025-07-31 15:33] LABS: AST(SGOT) 25 U/L (<=37); Alanine Aminotransfer ALT/SGPT 21 U/L (<=46); Albumin, Serum 4.2 g/dL (3.5-5.0); Alkaline Phosphatase 70 U/L (40-129); Anion Gap 12 (5-15); BUN 14 mg/dL (4-19); BUN/Creat Ratio 16.2 RATIO (10-20); Calcium,Total 9.3 mg/dL (7.6-11.0); Carbon Dioxide 21.5 mmol/L (21.0-32.0); Chloride 104 mmol/L (98-108); Estimated Creatinine Clearance 143.92 ml/min (50-250); Globulin 3.0 g/dL (2.2-4.2); Glucose 141 mg/dL (70-99); Potassium 4.0 mmol/L (3.3-5.1)
[2025-07-31 16:06] VITALS: BP 119/79; PULSE 73; RESP 16; O2SAT 100
[2025-07-31 16:16] VITALS: BP 119/79; PULSE 73; RESP 16; TEMP 36.4; O2SAT 100
== END 2025-07-31 16:16 | disposition home or self-care (01) ==
PROVIDERS: Emergency Provider Emergency Medicine; Visit Provider Emergency Medicine
DX: R73.9 Hyperglycemia, unspecified (principal); R53.83 Other fatigue; R03.0 Elevated blood-pressure reading, without diagnosis of hypertension; Z87.891 Personal history of nicotine dependence; R51.9 Headache, unspecified
CPT/HCPCS: 80053; 81002; 84443; 85025; 85652; 99282; A4216